=== PATIENT | female | born 1955 | race Caucasian/White ===

== ENCOUNTER 2020-12-28 12:35 | Emergency (ER) | payer OTHER ==
[~2020-12-28] VITALS: Ht 162.6 cm; Wt 72.6 kg
[2020-12-28 13:24] LABS: ABSOLUTE NEUTROPHILS 13.1 thou/uL (1.4-8.2); BASOPHILS 0.4 % (0.0-2.0); EOSINOPHILS 0.2 % (0.0-3.0); HEMATOCRIT 37.5 % (37.0-47.0); HEMOGLOBIN 12.5 gm/dL (12.0-15.0); LYMPHOCYTES 11.3 % (24.0-44.0); MCH 30.8 pg (26.0-34.0); MCHC 33.4 g/dL (28.0-37.0); MCV 92.3 fL (80.0-100.0); PLATELET COUNT 307 thou/uL (150-400); POLYS 80.1 % (36.0-66.0); RBC 4.07 mil/uL (4.20-5.00); RDW 14.7 % (10.5-14.5); WBC 16.3 thou/uL (4.0-11.0)
[2020-12-28 13:32] LABS: CALCIUM 9.3 mg/dL (8.5-10.1); POTASSIUM 4.3 mmol/L (3.5-5.1)
[2020-12-28 13:38] LABS: ALBUMIN 3.6 g/dL (3.4-5.0); TOTAL BILIRUBIN 0.3 mg/dL (0.2-1.0); TOTAL PROTEIN 7.5 g/dL (6.4-8.2)
[2020-12-28] MEDS ORDERED: CLEOCIN HCL300 MG PO (14:26)
[2020-12-28 14:30] VITALS: BP 157/85
== END 2020-12-28 14:30 | disposition home or self-care (01) ==
LOC: ER 12:35
PROVIDERS: Emergency Medicine
DX: K04.7 Periapical abscess without sinus (principal); Z98.890 Other specified postprocedural states; Z88.0 Allergy status to penicillin

== ENCOUNTER 2020-12-29 09:22 | Emergency (ER) | payer OTHER ==
[~2020-12-29] VITALS: Ht 162.6 cm; Wt 72.6 kg
[~2020-12-29 09:22] MED LIST: CLEOCIN HCL300 MG PO
[2020-12-29 10:31] LABS: ABSOLUTE NEUTROPHILS 9.8 thou/uL (1.4-8.2); BASOPHILS 0.3 % (0.0-2.0); CALCIUM 8.8 mg/dL (8.5-10.1); CREATININE 1.1 mg/dL (0.6-1.0); EOSINOPHILS 0.3 % (0.0-3.0); HEMATOCRIT 37.2 % (37.0-47.0); HEMOGLOBIN 12.2 gm/dL (12.0-15.0); LYMPHOCYTES 13.6 % (24.0-44.0); MCH 30.8 pg (26.0-34.0); MCHC 32.9 g/dL (28.0-37.0); MCV 93.5 fL (80.0-100.0); MONOCYTES 8.9 % (1.0-8.0); PLATELET COUNT 281 thou/uL (150-400); POLYS 76.9 % (36.0-66.0); POTASSIUM 4.2 mmol/L (3.5-5.1); RBC 3.98 mil/uL (4.20-5.00); RDW 14.6 % (10.5-14.5); WBC 12.8 thou/uL (4.0-11.0)
[2020-12-29 10:37] LABS: ALBUMIN 3.4 g/dL (3.4-5.0); TOTAL BILIRUBIN 0.5 mg/dL (0.2-1.0); TOTAL PROTEIN 6.9 g/dL (6.4-8.2)
[2020-12-29 11:15] VITALS: BP 170/89
== END 2020-12-29 11:15 | disposition home or self-care (01) ==
LOC: ER 09:22
PROVIDERS: Emergency Medicine
DX: K04.7 Periapical abscess without sinus (principal); Z79.899 Other long term (current) drug therapy; Z88.0 Allergy status to penicillin

== ENCOUNTER → 2021-02-03 | Outpatient (CLI) | payer OTHER ==
[~2021-02-03] MED LIST changes: +AUGMENTIN 875-1 EACH PO; +QUERCETIN PO; +VITAMIN D3 COM1 EACH PO; +ZINC50 MG PO
--- NOTE | 2021-02-03 12:39 | NUR ---
VAT CONSULTED FOR PICC PLACEMENT. HERNANDO COHEN WAS WIDELY PATENT WITH USG. DISCUSSED BENEFITS AND RISK OF PICC WITH PT, VERBALIZED UNDERSTANDING. 4FR SL PICC TRIMMED TO 44CM INSERTED TO 1CM EXTERNAL. PICC PLACEMENT CONFIRMED WITH 3C-WAVE, PEAKED P-WAVE. PICC RELEASED FOR IMMEDIATE USE PER PROTOCOL. PT TOLERATED WELL
[2021-02-03 12:54] VITALS: BP 131/72
[2021-02-03 13:53] VITALS: BP 138/76
[2021-02-03 14:05] VITALS: BP 131/72
[2021-02-03 15:00] VITALS: BP 124/66
[2021-02-03 15:10] VITALS: BP 131/72
--- NOTE | 2021-02-03 15:28 | NUR ---
HERE FOR PICC LINE PLACEMENT AND 1ST DOSE ZOSYN. PICC PLACED EARLIER BY VASCULAR ACCESS TEAM NURSE. NO S/S BLEEDING/BRUISING, DRESSING DRY/INTACT. DELAY AWAITING FINAL WORD ON ANTIBIOTIC CHOICE [id number] COST TO PATIENT IS QUITE HIGH FOR ZOSYN. DECISION BETWEEN DR. PITTS, [facility], AND PT'S INSURANCE IS TO GO WITH THE ZOSYN. DR. PITTS AWARE THAT PT HAD A REMOTE HX OF A PENICILLIN ALLERGY WITH POOR RECOLLECTION OF IT'S SEVERITY. HOWEVER, PT HAS BEEN ON AUGMENTIN NOW FOR 3 WEEKS WITH NO S/S REACTION. ZOSYN BEGAN AT 1400 AND PT STARTED COUGHING AND GOT IMMEDIATELY NAUSEATED 1 MINUTE INTO THERAPY. ZOSYN STOPPED. PT PUT ON MONITOR TO WATCH, APPEARS TO BE IN A SINUS NASH (NORMAL FOR HER) WITH OCCASIONAL ARRHYTHMIA. EARLIER ASSESSMENT AND AUSCULTATION OF HEART SOUNDS NOTED AN IRREGULAR RHYTHUM. PT DOES NOT RECALL EVER BEING TOLD THIS IN THE PAST. ONCE NAUSEA PASSED, ZOSYN RESUMED, THIS TIME WITHOUT INCIDENT. VSS THROUGHOUT. INFUSED OVER 30 MIN AND WATCHED FOR 40 MIN POST WITH NO S/S REACTION. MEANWHILE, [facility] HAS CALLED PT TO DISCUSS HOME INFUSIONS. PT IS STILL NEGOTIATING BEST OPTION D/T HIGH COST. PT WILL REMAIN ON HER ORAL AUGMENTIN UNTIL CONSISTENT IV THERAPY HAS BEGUN. VERBALIZES UNDERSTANDING OF PLAN. DIMSISSED IN STABLE CONDITION. INSTRUCTED TO CALL DR. PITTS'S OFFICE WITH ANY CONCERNS.
== END ==
LOC: OPONC 10:58
PROVIDERS: ATTEND Specialist
DX: M27.2 Inflammatory conditions of jaws (principal)
CPT/HCPCS: 27000; 95000

== ENCOUNTER → 2021-02-10 | Outpatient (CLI) | payer OTHER ==
[2021-02-10 09:37] LABS: HEMOGLOBIN 13.3 gm/dL (12.0-15.0); MCH 30.2 pg (26.0-34.0); MCHC 32.5 g/dL (28.0-37.0); MCV 92.9 fL (80.0-100.0); RBC 4.42 mil/uL (4.20-5.00); RDW 14.5 % (10.5-14.5); WBC 6.7 thou/uL (4.0-11.0)
[2021-02-10 10:02] LABS: ALBUMIN 3.6 g/dL (3.4-5.0); CALCIUM 8.9 mg/dL (8.5-10.1); CREATININE 1.1 mg/dL (0.6-1.0); POTASSIUM 4.1 mmol/L (3.5-5.1); TOTAL BILIRUBIN 0.4 mg/dL (0.2-1.0); TOTAL PROTEIN 6.8 g/dL (6.4-8.2)
--- NOTE | 2021-02-10 10:12 | NUR ---
PT HERE FOR WEEKLY PICC LINE DRESSING CHANGE AND LAB DRAW. PT IS ON CONTINUOUS IV ANTIBIOTICS THAT ARE SUPPLIED THROUGH HOME HEALTH. STATES SHE FEELS COMFORTABLE WITH CHANGING OUT HER SUPPLIES EVERYDAY AND OPERATING THE INFUSION PUMP. PICC LINE FLUSHES AND ASPIRATES WELL. LABS DRAWN PER ORDER. WILL FAX TO DR PITTS WHEN RESULTED. DRESSING CHANGED PER PROTOCOL WITH NO CONCERNS OR COMPLICATIONS. PT SCHEDULED TO RETURN NEXT WEDNESDAY. WILL NEED TO STOP AT REGISTRATION EACH VISIT FOR HER [employer]. LEFT UNIT IN STABLE CONDITION.
== END ==
LOC: OPONC 08:29
PROVIDERS: ATTEND Specialist
DX: M27.2 Inflammatory conditions of jaws (principal)

== ENCOUNTER → 2021-02-17 | Outpatient (CLI) | payer OTHER ==
--- NOTE | 2021-02-17 09:23 | NUR ---
PT HERE FOR WEEKLY PICC DRESSING CHANGE AND LABS. PICC LINE FLUSHES AND ASPIRATES WELL. LABS DRAWN PER ORDER. AWAITING RESUTLS. WILL FAX TO DR PITTS WHEN RESULTED. DRESSING CHANGED PER PROTOCOL. PT TOLERATED PROCEDURES WELL WITH NO COMPLICATIONS. STATES SHE IS STILL HAVING MINOR NUMBNESS IN HER JAW, BUT SHE HAS NOTICED A SLIGHT IMPROVEMENT. SCHEDULED TO RETURN NEXT WEDNESDAY. LEFT UNIT IN STABLE CONDITION.
[2021-02-17 09:33] LABS: ABSOLUTE NEUTROPHILS 2.8 thou/uL (1.4-8.2); BASOPHILS 1.4 % (0.0-2.0); EOSINOPHILS 9.3 % (0.0-3.0); HEMOGLOBIN 13.7 gm/dL (12.0-15.0); LYMPHOCYTES 33.7 % (24.0-44.0); MCHC 33.5 g/dL (28.0-37.0); MCV 92.6 fL (80.0-100.0); MONOCYTES 10.7 % (1.0-8.0); PLATELET COUNT 257 thou/uL (150-400); POLYS 44.9 % (36.0-66.0); RBC 4.43 mil/uL (4.20-5.00); RDW 14.7 % (10.5-14.5); WBC 6.2 thou/uL (4.0-11.0)
[2021-02-17 09:43] LABS: ALBUMIN 3.6 g/dL (3.4-5.0); CREATININE 1.1 mg/dL (0.6-1.0); POTASSIUM 4.1 mmol/L (3.5-5.1); TOTAL BILIRUBIN 0.3 mg/dL (0.2-1.0); TOTAL PROTEIN 6.8 g/dL (6.4-8.2)
== END ==
LOC: OPONC 08:25
PROVIDERS: ATTEND Specialist
DX: M27.2 Inflammatory conditions of jaws (principal)

== ENCOUNTER → 2021-02-24 | Outpatient (CLI) | payer OTHER ==
--- NOTE | 2021-02-24 09:03 | NUR ---
PT HERE FOR WEEKLY PICC DRESSING CHANGE AND LABS. CBC, CMP, CRP, AND ESR DRAWN PER ORDER. PICC LINE FLUSHES AND ASPIRATES WELL. DRESSING CHANGED PER PROTOCOL WITH NO COMPLICATIONS. AWAITING LAB RESULTS. WILL FAX WHEN RESULTED. PT SCHEDULED TO RETURN NEXT WEEK. TO SEE DR PITTS TOMORROW. LEFT UNIT IN STABLE CONDITION.
[2021-02-24 09:12] LABS: BASOPHILS 0.8 % (0.0-2.0); EOSINOPHILS 9.8 % (0.0-3.0); HEMATOCRIT 40.6 % (37.0-47.0); HEMOGLOBIN 13.3 gm/dL (12.0-15.0); LYMPHOCYTES 28.7 % (24.0-44.0); MCH 30.4 pg (26.0-34.0); MCHC 32.8 g/dL (28.0-37.0); MCV 92.9 fL (80.0-100.0); MONOCYTES 9.6 % (1.0-8.0); PLATELET COUNT 245 thou/uL (150-400); POLYS 51.1 % (36.0-66.0); RBC 4.36 mil/uL (4.20-5.00); RDW 14.6 % (10.5-14.5); WBC 5.9 thou/uL (4.0-11.0)
[2021-02-24 09:23] LABS: ALBUMIN 3.6 g/dL (3.4-5.0); ANION GAP 10 mmol/L (7-16); BUN 21 mg/dL (7-18); CALCIUM 8.7 mg/dL (8.5-10.1); CHLORIDE 107 mmol/L (98-107); CO2 24 mmol/L (21-32); GLUCOSE 98 mg/dL (74-106); POTASSIUM 4.1 mmol/L (3.5-5.1); SGOT 20 U/L (15-37); SGPT 34 U/L (30-65); SODIUM 141 mmol/L (136-145); TOTAL BILIRUBIN 0.4 mg/dL (0.2-1.0); TOTAL PROTEIN 6.7 g/dL (6.4-8.2)
== END ==
LOC: OPONC 08:09
PROVIDERS: ATTEND Specialist
DX: M27.2 Inflammatory conditions of jaws (principal)

== ENCOUNTER → 2021-03-03 | Outpatient (CLI) | payer OTHER ==
[2021-03-03 08:42] LABS: BASOPHILS 0.9 % (0.0-2.0); EOSINOPHILS 7.3 % (0.0-3.0); HEMATOCRIT 40.9 % (37.0-47.0); HEMOGLOBIN 13.5 gm/dL (12.0-15.0); LYMPHOCYTES 28.7 % (24.0-44.0); MCH 30.5 pg (26.0-34.0); MCV 92.5 fL (80.0-100.0); MONOCYTES 10.5 % (1.0-8.0); PLATELET COUNT 243 thou/uL (150-400); POLYS 52.6 % (36.0-66.0); RBC 4.42 mil/uL (4.20-5.00); RDW 14.7 % (10.5-14.5); WBC 5.8 thou/uL (4.0-11.0)
--- NOTE | 2021-03-03 08:55 | NUR ---
PT HERE FOR WEEKLY LABS AND PICC DRESSING CHANGE. STATES SHE IS STILL HAVING PAIN IN HER JAW. DR PITTS AND THE ORAL SURGEON THINK IT IS NERVE PAIN AND ARE HOPING IT GOES AWAY THE INFECTION CLEARS. NO OTHER SYMPTOMS TO REPORT. LABS DRAWN PER ORDER. PICC LINE FLUSHES AND ASPIRATES WELL. PT STATES SHE IS STILL CHANGING HER TUBING AND ANTIBIOTIC BAG EVERY MORNING INSTRUCTED. DRESSING CHANGED PER PROTOCOL WITH NO COMPLICATIONS. WILL FAX LAB RESULTS TO DR PITTS WHEN RESULTED. PT SCHEDULED TO RETURN NEXT WEEK, WHICH IS THE 6 WEEK [place]. AWAITING FURTHER INSTRUCTIONS FROM DR PITTS REGARDING CONTINUATION OF IV ANTIBIOTICS. PT LEFT UNIT IN STABLE CONDITION.
[2021-03-03 08:56] LABS: ALBUMIN 3.5 g/dL (3.4-5.0); ANION GAP 7 mmol/L (7-16); BUN 19 mg/dL (7-18); CALCIUM 8.9 mg/dL (8.5-10.1); CHLORIDE 106 mmol/L (98-107); CO2 28 mmol/L (21-32); CREATININE 1.1 mg/dL (0.6-1.0); GLUCOSE 102 mg/dL (74-106); SGOT 31 U/L (15-37); SGPT 58 U/L (14-59); SODIUM 141 mmol/L (136-145); TOTAL BILIRUBIN 0.3 mg/dL (0.2-1.0); TOTAL PROTEIN 6.9 g/dL (6.4-8.2)
== END ==
LOC: OPONC 08:45
PROVIDERS: ATTEND Specialist
DX: M27.2 Inflammatory conditions of jaws (principal)

== ENCOUNTER → 2021-03-10 | Outpatient (CLI) | payer OTHER ==
[2021-03-10 08:22] VITALS: BP 133/71
--- NOTE | 2021-03-10 09:10 | NUR ---
ARRIVED AMBULATORY. DENIES HEADACHE, NAUSEA, OR DIARRHEA. STATES NO CHANGE IN JAW. DENIES PAIN BUT STATES HER TEETH "DONT FEEL RIGHT" STILL COMPLAINS OF NUMBNESS RIGHT JAW AREA. HAS CONTINUOUS ANTIBIOTIC THERAPY FROM PUMP. DRESSING CHANGE DONE PER PROTOCOL AND LABS DRAWN. WILL FAX TO OFFICE WHEN RESULTED. PATIENT SEES DR. PITTS TOMORROW. WILL WAIT FOR FURTHER ORDERS FROM OFFICE. PATIENT IS ANTICIPATING ONE MORE WEEK OF TREATMENT. LEFT AMBULATORY IN STABLE CONDITION TO HOME.
[2021-03-10 09:39] LABS: ABSOLUTE NEUTROPHILS 2.8 thou/uL (1.4-8.2); BASOPHILS 0.9 % (0.0-2.0); EOSINOPHILS 6.4 % (0.0-3.0); HEMATOCRIT 40.7 % (37.0-47.0); HEMOGLOBIN 13.3 gm/dL (12.0-15.0); MCH 30.3 pg (26.0-34.0); MCHC 32.7 g/dL (28.0-37.0); MCV 92.8 fL (80.0-100.0); PLATELET COUNT 267 thou/uL (150-400); POLYS 49.7 % (36.0-66.0); RBC 4.39 mil/uL (4.20-5.00); RDW 14.5 % (10.5-14.5); WBC 5.6 thou/uL (4.0-11.0)
[2021-03-10 09:47] LABS: ALBUMIN 3.5 g/dL (3.4-5.0); ANION GAP 8 mmol/L (7-16); BUN 19 mg/dL (7-18); CALCIUM 8.7 mg/dL (8.5-10.1); CHLORIDE 108 mmol/L (98-107); CO2 27 mmol/L (21-32); GLUCOSE 99 mg/dL (74-106); SGOT 24 U/L (15-37); SGPT 70 U/L (30-65); SODIUM 143 mmol/L (136-145); TOTAL BILIRUBIN 0.3 mg/dL (0.2-1.0); TOTAL PROTEIN 6.9 g/dL (6.4-8.2)
== END ==
LOC: OPONC 09:48
PROVIDERS: ATTEND Specialist
DX: M27.2 Inflammatory conditions of jaws (principal)

== ENCOUNTER → 2021-03-17 | Outpatient (CLI) | payer OTHER ==
--- NOTE | 2021-03-17 08:50 | NUR ---
HERE FOR LABS AND PICC LINE DRESSING CHANGE. PT STATES SHE HAS COMPELTED HER 6 WEEKS OF CONTINUOUS IV ANTIBIOTIC INFUSION AND WILL SEE DR. PITTS TOMORROW. FEELS CONFIDENT THAT HE WILL STOP THE INFUSION AND PULL HER LINE BASED ON THEIR DISCUSSION LAST WEEK. LINE FLUSHES EASILY, SITE LOOKS GREAT, BUT NO BLOOD RETURN TODAY. DRESSING CHANGE DONE, PT RESUMED HER CONTINUOUS IV INFUSION. LABS DRAWN PERIPHERALLY. NO RETURN VISIT SCHEDULED. PT WILL CALL IF SHE IS TO KEEP LINE FOR ANY REASON. PT DOES REPORT FEELING WELL, LOOKS GOOD. STILL HAS SOME NUMBNESS IN RIGHT LOWER JAW AND STATES THE ORAL SURGEON TOLD HER THIS WILL TAKE SOME TIME TO RESOLVE. PT DISMISSED IN STABLE CONDTION.
[2021-03-17 09:17] LABS: ABSOLUTE NEUTROPHILS 3.3 thou/uL (1.4-8.2); BASOPHILS 0.6 % (0.0-2.0); EOSINOPHILS 5.6 % (0.0-3.0); HEMATOCRIT 39.2 % (37.0-47.0); HEMOGLOBIN 13.1 gm/dL (12.0-15.0); LYMPHOCYTES 32.5 % (24.0-44.0); MCH 30.8 pg (26.0-34.0); MCHC 33.4 g/dL (28.0-37.0); MCV 92.1 fL (80.0-100.0); MONOCYTES 9.8 % (1.0-8.0); PLATELET COUNT 277 thou/uL (150-400); POLYS 51.5 % (36.0-66.0); RBC 4.25 mil/uL (4.20-5.00); RDW 14.3 % (10.5-14.5); WBC 6.5 thou/uL (4.0-11.0)
[2021-03-17 09:36] LABS: ALBUMIN 3.5 g/dL (3.4-5.0); CREATININE 1.1 mg/dL (0.6-1.0); POTASSIUM 4.3 mmol/L (3.5-5.1); TOTAL BILIRUBIN 0.2 mg/dL (0.2-1.0); TOTAL PROTEIN 6.7 g/dL (6.4-8.2)
== END ==
LOC: OPONC 09:36
PROVIDERS: ATTEND Specialist
DX: M27.2 Inflammatory conditions of jaws (principal)
CPT/HCPCS: 91018